=== PATIENT | male | born 1995 | race Asian ===

== ENCOUNTER 2023-09-26 11:44 | Emergency (ER) | payer OTHER ==
[~2023-09-26] VITALS: Ht 167.6 cm; Wt 90.0 kg
[2023-09-26 11:47] VITALS: BP 124/65; PULSE 92; RESP 18; TEMP 97.4
== END 2023-09-26 15:58 | disposition home or self-care (01) ==
LOC: EMS 11:47
DX: S82.892A Other fracture of left lower leg, initial encounter for closed fracture (principal); M79.671 Pain in right foot; X50.1XXA Overexertion from prolonged static or awkward postures, initial encounter; Y93.89 Activity, other specified; Y92.89 Other specified places as the place of occurrence of the external cause; Y99.8 Other external cause status
CPT/HCPCS: 29515; 99284; 73610-TC; 73630-TC; Z7502